=== PATIENT | female | born 1965 | race African-American/Black ===

== ENCOUNTER 2020-06-05 11:47 | Emergency (ER) | payer SELFPAY ==
[~2020-06-05] VITALS: Ht 160 cm; Wt 70.9 kg
[~2020-06-05 11:47] MED LIST: CYCL-331 PO; FLUT16SP21 NS; LISI10TA2 PO; METO-239 PO; TRAM50TA PO
--- NOTE | 2020-06-05 13:34 | RAD ---
Examination: HAND RIGHT 3V, WRIST 3V RIGHT History: Reason: FALL WITH WRIST/HAND PAIN / Spl. Instructions: / History: Comparison/Correlation: None Findings: Three-view exam of the right hand and three-view exam right wrist was performed. Joint spaces are normal. No acute fracture or bone destruction. Soft tissues are unremarkable. No significant degenerative change. Impression: No acute process. Consider further imaging if occult fracture is a persistent concern. Electronically signed by: Abdelrahman Peters MD (06/05/2020 1:31 PM) [id number]
--- NOTE | 2020-06-05 13:51 | PHYS DOC ---
Past History Past Medical History: Hypertension Past Surgical History: No Surgical History Alcohol Use: Sober Drug Use: Other Adult General Chief Complaint Chief Complaint: WRIST PAIN HPI HPI Patient is a 50 referral female patient presents with right wrist pain. Patient reports that she had been cleaning at home 10 days ago, when she had struck her wrist on the bottom of the table, and had fallen milligrams. States she continued has some pain in her right wrist, radial side, states she has some difficulty moving her right thumb with some tenderness and feels like a pulling anytime she tries to move. States she continues to try to work, works as a sql server consultant, and has had times where she has had muscle strength in her right thumb due to the discomfort and has almost dropped some trays because of it. States she has been take some Tylenol, which has helped somewhat however she is not taking today. Denies any paresthesias, states she has been wearing a soft wrist brace, which has helped minimally. Also reports has been out of her blood pressure medications for a while Review of Systems Review of Systems Constitutional: Denies fever or chills [] Eyes: Denies change in visual acuity, redness, or eye pain [] HENT: Denies nasal congestion or sore throat [] Respiratory: Denies cough or shortness of breath [] Cardiovascular: No additional information not addressed in HPI [] GI: Denies abdominal pain, nausea, vomiting, bloody stools or diarrhea [] : Denies dysuria or hematuria [] Musculoskeletal: Denies back pain complains of right wrist and right thumb pain [] Integument: Denies rash or skin lesions [] Neurologic: Denies headache, focal weakness or sensory changes [] Endocrine: Denies polyuria or polydipsia [] All other systems were reviewed and found to be within normal limits, except as documented in this note. Allergies Allergies Allergies Coded Allergies Type Severity Reaction Last Updated Verified No Known Drug Allergies 04/27/17 No Physical Exam Physical Exam Constitutional: Well developed, well nourished, no acute distress, non-toxic appearance. [] HENT: Normocephalic, atraumatic, bilateral external ears normal, oropharynx moist, no oral exudates, nose normal. [] Eyes: PERRLA, EOMI, conjunctiva normal, no discharge. [] Neck: Normal range of motion, no tenderness, supple, no stridor. [] Cardiovascular:Heart rate regular rhythm, no murmur [] Lungs & Thorax: Bilateral breath sounds clear to auscultation [] Abdomen: Bowel sounds normal, soft, no tenderness, no masses, no pulsatile masses. [] Skin: Warm, dry, no erythema, no rash. [] Back: No tenderness, no CVA tenderness. [] Extremities: no cyanosis, no clubbing, ROM intact, no edema. Bruising noted to right wrist, radial side, with distal, minimal deformity noted to right thumb at base. With tenderness on palpation and movement. Brisk capillary refill [] Neurologic: Alert and oriented X 3, normal motor function, normal sensory function, no focal deficits noted. [] Psychologic: Affect normal, judgement normal, mood normal. [] Current Patient Data Vital Signs Vital Signs Date Time Temp Pulse Resp B/P (MAP) Pulse Ox O2 Delivery O2 Flow Rate FiO2 06/05/20 12:05 98.1 120 20 200/117 (144) 99 Room Air EKG EKG [] Radiology/Procedures Radiology/Procedures PROCEDURE: HAND RIGHT 3V Examination: HAND RIGHT 3V, WRIST 3V RIGHT History: Reason: FALL WITH WRIST/HAND PAIN / Spl. Instructions: / History: Comparison/Correlation: None Findings: Three-view exam of the right hand and three-view exam right wrist was performed. Joint spaces are normal. No acute fracture or bone destruction. Soft tissues are unremarkable. No significant degenerative change. Impression: No acute process. Consider further imaging if occult fracture is a persistent concern. Electronically signed by: Abdelrahman Guillory MD (06/05/2020 1:31 PM) [id number] DICTATED AND SIGNED BY: ABDELRAHMAN GUILLORY MD DATE: 06/05/20 1331 CC: KULWANT TORRES MD; YADIRA CORNELIUS APRN; PCP,NO ~[] Heart Score Risk Factors: Risk Factors: DM, Current or recent (<one month) smoker, HTN, HLP, family history of CAD, obesity. Risk Scores: Risk Factors: DM, Current or recent (<one month) smoker, HTN, HLP, family history of CAD, obesity. Course & Med Decision Making Course & Med Decision Making Pertinent Labs and Imaging studies reviewed. (See chart for details) [] Reviewed imaging results with patient with no noted fracture. Discussed likely a ligamentous injury, discussed use of a hard splint and follow-up with primary care provider as needed. Patient reports she agrees with this, will follow up with primary care and orthopedics as needed if discomfort continues. Will provide 30-day course of antihypertensives with patient Trishandrea Disclaimer Jenni Disclaimer This electronic medical record was generated, in whole or in part, using a voice recognition dictation system. Departure Departure: Impression: Primary Impression: Sprain of right thumb Additional Impressions: Ligamentous laxity of hand Hypertension Disposition: HOME SELF CARE/HOMELESS Condition: GOOD Referrals: PCP,NO (PCP) Patient Instructions: Hypertension, Ligament Sprain Additional Instructions: As we discussed, you likely strained the ligaments in your thumb of the cause of the discomfort. Continue to take Tylenol ibuprofen as needed for discomfort. Continue to keep your wrist in the splint for the next 7 days. You may continue to put ice on your wrist. Tylenol ibuprofen as needed for discomfort. Start the blood pressure medications again, make sure you get your primary care provider within the next 30 days to have a refill of these. If you continue to have discomfort, again follow-up with your primary care provider, and they may consider referring you to orthopedics to further evaluate your thumb. Try to change the way that you are carrying the trays, and avoid pressure on your thumb, which will worsen the strain and increase your discomfort. Scripts Metoprolol Succinate (METOPROLOL SUCCINATE ( XL )) 25 Mg Tab.er.24h 25 MG PO DAILY for hypertension, #30 TAB.SR 0 Refills Prov: YADIRA CORNELIUS APRN 06/05/20 Lisinopril (LISINOPRIL) 10 Mg Tablet 1 TAB PO DAILY for hypertension, #30 TAB 5 Refills Prov: YADIRA CORNELIUS APRN 06/05/20 Problem Qualifiers Primary Impression: Sprain of right thumb Encounter type: initial encounter Sprain of finger site: metacarpophalangeal joint Qualified Codes: S63.641A - Sprain of metacarpophalangeal joint of right thumb, initial encounter Additional Impressions: Ligamentous laxity of hand Laterality: right Qualified Codes: M24.241 - Disorder of ligament, right hand Hypertension Hypertension type: essential hypertension Qualified Codes: I10 - Essential (primary) hypertension YADIRA CORNELIUS APRN Jun 05, 2020 13:51
[2020-06-05 14:00] VITALS: BP 212/111
[2020-06-05] MEDS ORDERED: LISI10TA2 PO (14:10)
[2020-06-05] MEDS ORDERED: METO-239 PO (14:10)
== END 2020-06-05 14:25 | disposition home or self-care (01) ==
LOC: ER 11:47 → MERGE 11:47 → ER 14:25
DX: S63.681A Other sprain of right thumb, initial encounter (principal); M24.241 Disorder of ligament, right hand; I10 Essential (primary) hypertension; W22.8XXA Striking against or struck by other objects, initial encounter; Y93.89 Activity, other specified; Y92.89 Other specified places as the place of occurrence of the external cause; Y99.8 Other external cause status
CPT/HCPCS: 73110; 73130; 99284